=== PATIENT | female | born 1980 | race Caucasian/White ===

== ENCOUNTER 2021-05-06 09:51 | Emergency (ER) | payer OTHER, MEDICAID ==
[~2021-05-06] VITALS: Ht 165.1 cm; Wt 108.9 kg
[2021-05-06] MEDS ORDERED: LISINOPRIL20 MG PO (10:05)
[2021-05-06] MEDS ORDERED: CLONIDINE HCL0.1 M1 PO (10:05)
[2021-05-06] MEDS ORDERED: CELEXA40 MG PO (10:06)
[2021-05-06] MEDS ORDERED: QUETIAPINE FUM100 MG PO (10:06)
[2021-05-06 10:18] LABS: ABSOLUTE EOSINOPHILS 0.2 thou/uL (0.0-0.7); ABSOLUTE LYMPHOCYTES 1.6 thou/uL (0.8-5.3); ABSOLUTE MONOCYTES 0.6 thou/uL (0.0-1.2); ABSOLUTE NEUTROPHILS 6.9 thou/uL (1.6-8.1); BASOPHILS 0.4 %; EOSINOPHILS 1.8 %; HEMATOCRIT 38.2 % (37.0-47.0); HEMOGLOBIN 12.7 gm/dL (12.0-15.0); MCH 27.8 pg (26.0-34.0); MCHC 33.4 g/dL (28.0-37.0); MCV 83.2 fL (80.0-100.0); MONOCYTES 6.9 %; MPV 7.9 fl. (7.2-11.1); NUCLEATED RBCS 0 /100WBC; PLATELET COUNT* 168 thou/uL (150-400); POLYS 73.9 %; RBC 4.59 mil/uL (4.20-5.00); RDW-CV 18.2 % (10.5-14.5); WBC 9.4 thou/uL (4.0-11.0)
[2021-05-06 10:32] LABS: CALCIUM 8.4 mg/dL (8.5-10.1); CREATININE 0.6 mg/dL (0.6-1.3)
[2021-05-06 10:37] LABS: ALBUMIN 2.9 g/dL (3.4-5.0); TOTAL BILIRUBIN 0.3 mg/dL (<0.1-1.0); TOTAL PROTEIN 7.1 g/dL (6.4-8.2)
[2021-05-06 11:31] LABS: URINE BILIRUBIN NEGATIVE (Negative); URINE BLOOD NEGATIVE (Negative); URINE CLARITY SL CLOUDY; URINE COLOR YELLOW; URINE GLUCOSE-RANDOM NEGATIVE (Negative); URINE KETONES NEGATIVE (Negative); URINE LEUKOCYTES 2+ (Negative); URINE NITRITE NEGATIVE (Negative); URINE PROTEIN 1+ (Negative); URINE UROBILINOGEN 0.2 E.U./dl (0.2-1.0)
[2021-05-06 11:37] LABS: SQUAMOUS >10 Many /LPF (0-3)
[2021-05-06 11:38] LABS: CASTS None Seen /LPF (None Seen); URINE RBC None Seen /HPF (0-2); URINE WBC 6-15 Few /HPF (0-5)
[2021-05-06 11:39] LABS: CRYSTALS None Seen /LPF (None Seen)
[2021-05-06 12:46] VITALS: BP 174/78
[2021-05-06] MEDS ORDERED: CEPHALEXIN500 MG PO (12:54)
== END 2021-05-06 12:46 | disposition home or self-care (01) ==
LOC: M.ERS 09:51
PROVIDERS: Physician Assistant
DX: O46.8X2 Other antepartum hemorrhage, second trimester (principal); N39.0 Urinary tract infection, site not specified; Z3A.15 15 weeks gestation of pregnancy; Z79.899 Other long term (current) drug therapy; W19.XXXA Unspecified fall, initial encounter; Y93.89 Activity, other specified; Y92.89 Other specified places as the place of occurrence of the external cause; Y99.8 Other external cause status